=== PATIENT | female | born 1940 | race Caucasian/White ===

== ENCOUNTER 2017-01-17 12:12 | Day surgery (SDC) | payer MEDICARE, OTHER ==
[2017-01-17] MEDS ORDERED: LACTATED RINGERS 1,000 ML IV ONE ×2 (12:49→14:48)
[2017-01-17] MEDS ORDERED: MIDAZOLAM 2 MG/2 ML VIAL IVP ONE (14:13)
[2017-01-17] MEDS ORDERED: fentaNYL 250 MCG/5 ML VIAL IVP ONE (14:13)
== END 2017-01-17 12:13 | disposition home or self-care (01) ==
PROC: 0DBL8ZX Excision of Transverse Colon, Via Natural or Artificial Opening Endoscopic, Diagnostic (ICD-10-PCS; 2017-01-17)
PROC: 0DBF8ZX Excision of Right Large Intestine, Via Natural or Artificial Opening Endoscopic, Diagnostic (ICD-10-PCS; 2017-01-17)
PROC: 0DBE8ZX Excision of Large Intestine, Via Natural or Artificial Opening Endoscopic, Diagnostic (ICD-10-PCS; 2017-01-17)
PROC: 0DBG8ZX Excision of Left Large Intestine, Via Natural or Artificial Opening Endoscopic, Diagnostic (ICD-10-PCS; principal; 2017-01-17 13:30)
DX: Z12.11 Encounter for screening for malignant neoplasm of colon (principal); K63.5 Polyp of colon; K57.30 Diverticulosis of large intestine without perforation or abscess without bleeding; Z87.19 Personal history of other diseases of the digestive system; I10 Essential (primary) hypertension; E78.00 Pure hypercholesterolemia, unspecified
CPT/HCPCS: 45380; J3010; J7120

== ENCOUNTER 2017-11-08 14:11 | Outpatient (CLI) | payer MEDICARE, OTHER ==
--- NOTE | 2017-11-09 15:25 | Mammography Report ---
DIGITAL SCREENING MAMMOGRAM: 11/08/2017 CLINICAL INDICATION: A 77-year-old with family history of breast cancer, for screening. COMPARISON: 08/2016, 11/2014, 11/2013. TECHNIQUE: Routine CC and MLO projections were obtained of the breasts. FINDINGS: The breasts again demonstrate fatty replacement bilaterally. Coarse and punctate, typically benign calcifications are present. No suspicious masses, clustered microcalcifications, or regions of architectural distortion are identified. IMPRESSION: BENIGN FINDINGS. RECOMMENDATION: ROUTINE ANNUAL SCREENING UNLESS OTHERWISE CLINICALLY INDICATED. BIRADS CATEGORY 2-BENIGN FINDINGS. STANDARD QUALIFYING STATEMENTS: 1. This examination was reviewed with the aid of Computer-Aided Detection (CAD). 2. A negative or benign imaging report should not delay biopsy if clinically suspicious findings are present. Consider surgical consultation if warranted. More than 5% of cancers are not identified by imaging. 3. Dense breasts may obscure an underlying neoplasm. TD: 11/09/2017 15:24
== END 2017-11-08 14:12 | disposition home or self-care (01) ==
LOC: DI 14:11
PROVIDERS: ATTEND Family Medicine
DX: Z12.31 Encounter for screening mammogram for malignant neoplasm of breast (principal); Z80.3 Family history of malignant neoplasm of breast
CPT/HCPCS: 77067

== ENCOUNTER 2018-07-09 11:20 | Outpatient (CLI) | payer MEDICARE, OTHER ==
[2018-07-09 19:09] LABS: BASOPHILS # (AUTO) 0.1 10^3/uL (0.0-0.1); BASOPHILS % (AUTO) 0.7 %; EOSINOPHILS # (AUTO) 0.1 10^3/uL (0.0-0.7); EOSINOPHILS % (AUTO) 1.4 %; HGB - HEMOGLOBIN 12.7 g/dL (12.0-16.0); LYMPHOCYTES # (AUTO) 0.9 10^3/uL (1.5-3.5); LYMPHOCYTES % (AUTO) 11.8 %; MEAN CORPUSCULAR HEMOGLOBIN 32.5 pg (27.0-31.0); MEAN CORPUSCULAR HGB CONC 33.8 g/dL (32.0-36.0); MEAN CORPUSCULAR VOLUME 96.2 fL (81.0-99.0); MEAN PLATELET VOLUME 8.8 fL (7.9-10.8); MONOCYTES # (AUTO) 0.6 10^3/uL (0.0-1.0); MONOCYTES % (AUTO) 7.7 %; NEUTROPHILS # (AUTO) 6.2 10^3/uL (1.5-6.6); NEUTROPHILS % (AUTO) 78.4 %; PLT - PLATELET COUNT 303 10^3/uL (130-450); RED BLOOD COUNT 3.92 10^6/uL (4.20-5.40); RED CELL DISTRIBUTION WIDTH 13.9 % (12.0-15.0); WHITE BLOOD COUNT 7.9 x10^3/uL (4.8-10.8)
[2018-07-09 19:36] LABS: ALBUMIN 4.3 g/dL (3.2-5.5); ALBUMIN/GLOBULIN RATIO 1.3 (1.0-2.2); ALKALINE PHOSPHATASE 67 IU/L (42-121); ALT ALANINE AMINOTRANSFERASE 19 IU/L (10-60); AST ASPARTATE AMINOTRANSFERASE 27 IU/L (10-42); BILIRUBIN,TOTAL 0.7 mg/dL (0.2-1.0); BUN - BLOOD UREA NITROGEN 21 mg/dL (6-20); CALCIUM 9.3 mg/dL (8.5-10.3); CARBON DIOXIDE - CO2 27 mmol/L (21-32); CHLORIDE 104 mmol/L (101-111); CHOL/HDL RATIO 2.3 (<4.4); CHOLESTEROL 161 mg/dL; CREATININE 0.8 mg/dL (0.4-1.0); GFR - MDRD 69 (>89); GLUCOSE 96 mg/dL (70-100); HDL CHOLESTEROL 71 mg/dL; LDL CHOLESTEROL,CALCULATED 72 mg/dL; SODIUM 140 mmol/L (135-145); TOTAL PROTEIN 7.6 g/dL (6.7-8.2); VLDL CHOLESTEROL 18 mg/dL
[2018-07-09 20:33] LABS: HB2 TOTAL 13.3 g/dL; HEMOGLOBIN A1C 0.55 g/dL; HEMOGLOBIN A1C % 5.9 % (4.6-6.2)
== END 2018-07-09 11:21 ==
LOC: LAB.WCP 11:20
PROVIDERS: ATTEND Family Medicine
DX: I10 Essential (primary) hypertension (principal); E78.9 Disorder of lipoprotein metabolism, unspecified; K50.90 Crohn's disease, unspecified, without complications; R73.01 Impaired fasting glucose; R53.83 Other fatigue
CPT/HCPCS: 36415; 80053; 80061; 83036; 83721; 84443; 85025

== ENCOUNTER 2019-01-01 15:32 | Outpatient (CLI) | payer MEDICARE, OTHER ==
--- NOTE | 2019-01-01 16:36 | XRAY Report ---
Reason: RIGHT DISTAL ULNA TENDER Procedure Date: 01/01/2019 Accession Number: [id number] / [id number] Procedure: XRN - Wrist 4 View RT CPT Code: FULL RESULT: EXAM: RIGHT WRIST RADIOGRAPHY EXAM DATE: 01/01/2019 03:58 PM. CLINICAL HISTORY: Right distal ulna tender. COMPARISON: None. TECHNIQUE: 4 views (including dedicated scaphoid view). FINDINGS: Bones: Normal. No fractures or bone lesions. Joints: Mild degenerative appearing narrowing of the STT joint. Borderline widening of the scapholunate distance could indicate laxity to the interosseous ligament. Soft Tissues: Normal. No soft tissue swelling. IMPRESSION: No acute fracture or malalignment. RADIA
== END 2019-01-01 15:33 | disposition home or self-care (01) ==
LOC: DI.N 15:32
PROVIDERS: ATTEND Family Medicine
DX: M25.531 Pain in right wrist (principal)

== ENCOUNTER 2019-01-28 10:23 | Outpatient (CLI) | payer MEDICARE, OTHER ==
--- NOTE | 2019-01-28 17:11 | XRAY Report ---
Reason: KNEE PAIN,RIGHT Procedure Date: 01/28/2019 Accession Number: [id number] / [id number] Procedure: WCP - Knee 2 View RT CPT Code: FULL RESULT: EXAM: RIGHT KNEE RADIOGRAPHY EXAM DATE: 01/28/2019 10:35 AM. CLINICAL HISTORY: KNEE Pain, right. COMPARISON: WRIST 4 VIEW RT 01/01/2019 3:59 PM. TECHNIQUE: 2 views. FINDINGS: Bones: Normal. No fractures or bone lesions. Joints: Mild medial compartment joint space narrowing. Soft Tissues: Unremarkable. IMPRESSION: 1. Mild medial compartment degenerative joint space narrowing. RADIA
== END 2019-01-28 10:24 | disposition home or self-care (01) ==
LOC: DI.WCP 10:23
PROVIDERS: ATTEND Physician Assistant
DX: M17.11 Unilateral primary osteoarthritis, right knee (principal)

== ENCOUNTER 2019-02-13 15:37 | Outpatient (CLI) | payer MEDICARE, OTHER ==
[2019-02-13 19:08] LABS: BASOPHILS # (AUTO) 0.1 10^3/uL (0.0-0.1); BASOPHILS % (AUTO) 1.1 %; EOSINOPHILS # (AUTO) 0.2 10^3/uL (0.0-0.7); EOSINOPHILS % (AUTO) 2.6 %; HGB - HEMOGLOBIN 12.8 g/dL (12.0-16.0); LYMPHOCYTES # (AUTO) 1.4 10^3/uL (1.5-3.5); LYMPHOCYTES % (AUTO) 17.9 %; MEAN CORPUSCULAR HGB CONC 34.6 g/dL (32.0-36.0); MEAN CORPUSCULAR VOLUME 95.4 fL (81.0-99.0); MEAN PLATELET VOLUME 9.3 fL (7.9-10.8); MONOCYTES # (AUTO) 0.7 10^3/uL (0.0-1.0); MONOCYTES % (AUTO) 9.2 %; NEUTROPHILS # (AUTO) 5.5 10^3/uL (1.5-6.6); NEUTROPHILS % (AUTO) 69.2 %; PLT - PLATELET COUNT 256 10^3/uL (130-450); RED BLOOD COUNT 3.87 10^6/uL (4.20-5.40); RED CELL DISTRIBUTION WIDTH 13.9 % (12.0-15.0); WHITE BLOOD COUNT 7.9 x10^3/uL (4.8-10.8)
[2019-02-13 19:28] LABS: ALBUMIN 3.9 g/dL (3.2-5.5); ALBUMIN/GLOBULIN RATIO 1.3 (1.0-2.2); BILIRUBIN,TOTAL 0.4 mg/dL (0.2-1.0); CALCIUM 9.1 mg/dL (8.5-10.3); CREATININE 0.8 mg/dL (0.4-1.0); TOTAL PROTEIN 6.9 g/dL (6.7-8.2)
== END 2019-02-13 23:59 | disposition home or self-care (01) ==
LOC: LAB.WCP 15:37
PROVIDERS: ATTEND Family Medicine
DX: M25.511 Pain in right shoulder (principal); M25.512 Pain in left shoulder
CPT/HCPCS: 36415; 80053; 85025

== ENCOUNTER 2019-08-11 10:29 | Outpatient (CLI) | payer MEDICARE, OTHER ==
[2019-08-11 11:58] LABS: BASOPHILS % (AUTO) 0.6 %; EOSINOPHILS % (AUTO) 0.8 %; HGB - HEMOGLOBIN 13.2 g/dL (12.0-16.0); LYMPHOCYTES # (AUTO) 0.7 10^3/uL (1.5-3.5); LYMPHOCYTES % (AUTO) 20.3 %; MEAN CORPUSCULAR HEMOGLOBIN 31.4 pg (27.0-31.0); MEAN CORPUSCULAR HGB CONC 32.5 g/dL (32.0-36.0); MEAN CORPUSCULAR VOLUME 96.4 fL (81.0-99.0); MEAN PLATELET VOLUME 11.4 fL (7.9-10.8); MONOCYTES # (AUTO) 0.7 10^3/uL (0.0-1.0); MONOCYTES % (AUTO) 18.9 %; NEUTROPHILS # (AUTO) 2.1 10^3/uL (1.5-6.6); NEUTROPHILS % (AUTO) 59.1 %; PLT - PLATELET COUNT 171 10^3/uL (130-450); RED BLOOD COUNT 4.21 10^6/uL (4.20-5.40); RED CELL DISTRIBUTION WIDTH 13.4 % (12.0-15.0); WHITE BLOOD COUNT 3.5 x10^3/uL (4.8-10.8)
[2019-08-11 12:29] LABS: HB2 TOTAL 12.9 g/dL
[2019-08-11 12:39] LABS: ALBUMIN 4.3 g/dL (3.2-5.5); ALBUMIN/GLOBULIN RATIO 1.3 (1.0-2.2); ALKALINE PHOSPHATASE 59 IU/L (42-121); ALT ALANINE AMINOTRANSFERASE 23 IU/L (10-60); AST ASPARTATE AMINOTRANSFERASE 30 IU/L (10-42); BILIRUBIN,TOTAL 0.6 mg/dL (0.2-1.0); BUN - BLOOD UREA NITROGEN 20 mg/dL (6-20); CALCIUM 9.1 mg/dL (8.5-10.3); CARBON DIOXIDE - CO2 25 mmol/L (21-32); CHLORIDE 108 mmol/L (101-111); CHOL/HDL RATIO 2.5 (<4.4); CHOLESTEROL 147 mg/dL; CREATININE 0.9 mg/dL (0.4-1.0); GFR - MDRD 60 (>89); GLUCOSE 114 mg/dL (70-100); HDL CHOLESTEROL 58 mg/dL; LDL CHOLESTEROL,CALCULATED 68 mg/dL; LDL/HDL RATIO 1.2 (<4.4); SODIUM 140 mmol/L (135-145); TOTAL PROTEIN 7.7 g/dL (6.7-8.2); VLDL CHOLESTEROL 21 mg/dL
[2019-08-11 13:24] LABS: HEMOGLOBIN A1C 0.58 g/dL; HEMOGLOBIN A1C % 6.3 % (4.6-6.2)
== END 2019-08-11 23:59 | disposition home or self-care (01) ==
LOC: LAB.WCP 10:29
PROVIDERS: ATTEND Family Medicine
DX: L71.9 Rosacea, unspecified (principal); I10 Essential (primary) hypertension; M25.561 Pain in right knee; K50.90 Crohn's disease, unspecified, without complications; E78.5 Hyperlipidemia, unspecified
CPT/HCPCS: 36415; 80053; 80061; 83036; 83721; 84443; 85025

== ENCOUNTER 2019-08-19 10:14 | Outpatient (CLI) | payer MEDICARE, OTHER ==
--- NOTE | 2019-08-19 15:50 | XRAY Report ---
Reason: BRONCHITIS ACUTE Procedure Date: 08/19/2019 Accession Number: [id number] / [id number] Procedure: WCP - Chest 2 View X-Ray CPT Code: 70566 Final Report FULL RESULT: EXAM: CHEST RADIOGRAPHY EXAM DATE: 08/19/2019 10:14 AM. CLINICAL HISTORY: Bronchitis, acute. COMPARISON: None. TECHNIQUE: 2 views. FINDINGS: Lungs/Pleura: No focal opacities evident. No pleural effusion. No pneumothorax. Mild flattening of diaphragms and increased lung volumes, can be seen with obstructive lung disease. Mediastinum: Heart and mediastinal contours are unremarkable. Other: None. IMPRESSION: No acute cardiopulmonary abnormality is detected. Question obstructive lung disease. RADIA
== END 2019-08-19 23:59 | disposition home or self-care (01) ==
LOC: DI.WCP 10:14
PROVIDERS: ATTEND Family Medicine
DX: J20.9 Acute bronchitis, unspecified (principal)
CPT/HCPCS: 71046

== ENCOUNTER 2020-02-13 08:00 | Outpatient (CLI) | payer MEDICARE, OTHER ==
[2020-02-13 13:05] LABS: BASOPHILS # (AUTO) 0.1 10^3/uL (0.0-0.1); BASOPHILS % (AUTO) 0.7 %; EOSINOPHILS # (AUTO) 0.2 10^3/uL (0.0-0.7); EOSINOPHILS % (AUTO) 1.7 %; HGB - HEMOGLOBIN 12.2 g/dL (12.0-16.0); LYMPHOCYTES # (AUTO) 1.1 10^3/uL (1.5-3.5); LYMPHOCYTES % (AUTO) 12.8 %; MEAN CORPUSCULAR HEMOGLOBIN 29.8 pg (27.0-31.0); MEAN CORPUSCULAR HGB CONC 31.4 g/dL (32.0-36.0); MEAN CORPUSCULAR VOLUME 94.9 fL (81.0-99.0); MEAN PLATELET VOLUME 11.3 fL (7.9-10.8); MONOCYTES # (AUTO) 1.1 10^3/uL (0.0-1.0); MONOCYTES % (AUTO) 12.6 %; NEUTROPHILS # (AUTO) 6.4 10^3/uL (1.5-6.6); NEUTROPHILS % (AUTO) 71.4 %; PLT - PLATELET COUNT 283 10^3/uL (130-450); RED CELL DISTRIBUTION WIDTH 13.6 % (12.0-15.0); WHITE BLOOD COUNT 8.9 x10^3/uL (4.8-10.8)
[2020-02-13 13:29] LABS: BILIRUBIN,URINE NEGATIVE (NEGATIVE); GLUCOSE, URINE (UA) NEGATIVE (NEGATIVE); KETONES,URINE (UA) NEGATIVE (NEGATIVE); LEUKOCYTE ESTERASE, URINE LARGE (NEGATIVE); NITRITE,URINE NEGATIVE (NEGATIVE); OCCULT BLOOD,URINE MODERATE (NEGATIVE); PH,URINE 5.5 PH (5.0-7.5); PROTEIN,URINE 30 mg/dL (NEGATIVE); UROBILINOGEN,URINE 0.2 (NORMAL) E.U./dL (NORMAL)
[2020-02-13 13:30] LABS: CLARITY,URINE SL. CLOUDY (CLEAR)
[2020-02-13 13:36] LABS: RBC,URINE None Seen /HPF (0-5); SQUAMOUS EPITHELIAL CELL,UR NONE SEEN (<= Few)
[2020-02-13 13:37] LABS: BACTERIA,URINE Moderate /HPF (None Seen)
[2020-02-13 13:46] LABS: ALBUMIN 3.7 g/dL (3.2-5.5); BILIRUBIN,TOTAL 0.8 mg/dL (0.2-1.0); CALCIUM 9.2 mg/dL (8.5-10.3); CREATININE 1.1 mg/dL (0.4-1.0); TOTAL PROTEIN 7.5 g/dL (6.7-8.2)
== END 2020-02-13 23:59 | disposition home or self-care (01) ==
LOC: LAB.WCP 08:00
PROVIDERS: ATTEND Nurse Practitioner Family
DX: R35.0 Frequency of micturition (principal); J20.9 Acute bronchitis, unspecified; E78.5 Hyperlipidemia, unspecified; I10 Essential (primary) hypertension; K50.90 Crohn's disease, unspecified, without complications; R73.01 Impaired fasting glucose
CPT/HCPCS: 36415; 80053; 81001; 81003; 85025; 87077; 87086; 87181

== ENCOUNTER 2020-12-28 08:00 | Outpatient (CLI) | payer MEDICARE, OTHER ==
[2020-12-28 17:44] LABS: BASOPHILS # (AUTO) 0.1 10^3/uL (0.0-0.1); BASOPHILS % (AUTO) 1.4 %; EOSINOPHILS # (AUTO) 0.2 10^3/uL (0.0-0.7); EOSINOPHILS % (AUTO) 2.7 %; HCT - HEMATOCRIT 40.2 % (37.0-47.0); HGB - HEMOGLOBIN 12.9 g/dL (12.0-16.0); LYMPHOCYTES # (AUTO) 1.3 10^3/uL (1.5-3.5); LYMPHOCYTES % (AUTO) 20.1 %; MEAN CORPUSCULAR HEMOGLOBIN 31.6 pg (27.0-31.0); MEAN CORPUSCULAR HGB CONC 32.1 g/dL (32.0-36.0); MEAN CORPUSCULAR VOLUME 98.5 fL (81.0-99.0); MEAN PLATELET VOLUME 11.4 fL (7.9-10.8); MONOCYTES # (AUTO) 0.7 10^3/uL (0.0-1.0); MONOCYTES % (AUTO) 11.6 %; NEUTROPHILS % (AUTO) 63.6 %; PLT - PLATELET COUNT 231 10^3/uL (130-450); RED BLOOD COUNT 4.08 10^6/uL (4.20-5.40); RED CELL DISTRIBUTION WIDTH 13.3 % (12.0-15.0); WHITE BLOOD COUNT 6.2 x10^3/uL (4.8-10.8)
[2020-12-28 18:02] LABS: CREATININE,URINE 152.5 mg/dL; MICROALBUM/CREATININE RATIO,UR 11.8 ug/mg (<30.0); MICROALBUMIN,URINE 1.8 mg/dL (0-300.0)
[2020-12-28 18:19] LABS: THYROID STIMULATING HORMONE 2.39 uIU/mL (0.34-5.60)
[2020-12-28 18:23] LABS: ALBUMIN 4.2 g/dL (3.2-5.5); ALBUMIN/GLOBULIN RATIO 1.2 (1.0-2.2); ALKALINE PHOSPHATASE 61 IU/L (42-121); ALT ALANINE AMINOTRANSFERASE 18 IU/L (10-60); AST ASPARTATE AMINOTRANSFERASE 21 IU/L (10-42); BILIRUBIN,TOTAL 0.5 mg/dL (0.2-1.0); BUN - BLOOD UREA NITROGEN 26 mg/dL (6-20); CALCIUM 9.2 mg/dL (8.5-10.3); CARBON DIOXIDE - CO2 26 mmol/L (21-32); CHLORIDE 105 mmol/L (101-111); CHOL/HDL RATIO 2.6 (<4.4); CHOLESTEROL 161 mg/dL; GFR - MDRD 53 (>89); GLUCOSE 111 mg/dL (70-100); HDL CHOLESTEROL 63 mg/dL; LDL CHOLESTEROL,CALCULATED 83 mg/dL; LDL/HDL RATIO 1.3 (<4.4); POTASSIUM 4.3 mmol/L (3.5-5.0); SODIUM 140 mmol/L (135-145); TOTAL PROTEIN 7.7 g/dL (6.7-8.2); TRIGLYCERIDES 74 mg/dL; VLDL CHOLESTEROL 15 mg/dL
[2020-12-28 20:13] LABS: ESTIMATED AVERAGE GLUCOSE 126 mg/dL (70-100)
== END 2020-12-28 23:59 | disposition home or self-care (01) ==
LOC: LAB.WCP 08:00
PROVIDERS: ATTEND Internal Medicine
DX: R73.01 Impaired fasting glucose (principal); I10 Essential (primary) hypertension; E78.5 Hyperlipidemia, unspecified
CPT/HCPCS: 36415; 80053; 80061; 82043; 82570; 83036; 83721; 84443; 85025

== ENCOUNTER 2020-12-28 10:51 | Outpatient (CLI) | payer MEDICARE, OTHER ==
--- NOTE | 2020-12-28 12:01 | Mammography Report ---
BILATERAL DIGITAL SCREENING MAMMOGRAM 3D/2D: 12/28/2020 CLINICAL: Family history of breast cancer. Routine screening. Comparison is made to exams dated: 11/08/2017 mammogram, 08/01/2016 mammogram, 12/01/2014 mammogram, 11/25 mammogram, 11/20/2012 mammogram, and 11/20/2011 mammogram - [facility]. The ti ssue of both breasts is predominantly fatty. There are benign vascular calcifications in both breasts. No significant masses, calcifications, or other findings are seen in either breast. There has been no significant interval change. IMPRESSION: BENIGN There is no mammographic evidence of malignancy. A 1 year screening mammogram is recommended. This exam was interpreted at Station ID: [id number]. NOTE: For mammograms, a report in lay terms will be sent to the patient. Approximately 15% of breast malignancies will not be visualized mammographically. In the management of a palpable breast mass, a negative mammogram must not discourage biopsy of a clinically suspicious lesion. Electronically Signed By: Boni Nickerson acr/penrad:12/28/2020 11:50:20 ACR BI-RADS Category 2: Benign Finding(s) 3342F PARENCHYMAL PATTERN: (F) - The breast(s) demonstrate(s) diffuse fatty replacement. BI-RADS CATEGORY: (2) - 2 RECOMMENDATION: (ANNUAL) - Recommend routine annual screening mammography. [id number] 1 year screening LATERALITY: (B)
== END 2020-12-28 10:52 | disposition home or self-care (01) ==
LOC: DI.N 10:51
PROVIDERS: ATTEND Internal Medicine
DX: Z12.31 Encounter for screening mammogram for malignant neoplasm of breast (principal); Z80.3 Family history of malignant neoplasm of breast

== ENCOUNTER 2023-05-02 14:19 | Outpatient (CLI) | payer MEDICARE, OTHER ==
[2023-05-02 17:49] LABS: BASOPHILS # (AUTO) 0.1 10^3/uL (0.0-0.1); EOSINOPHILS # (AUTO) 0.1 10^3/uL (0.0-0.7); EOSINOPHILS % (AUTO) 1.7 %; HCT - HEMATOCRIT 33.1 % (37.0-47.0); HGB - HEMOGLOBIN 10.1 g/dL (12.0-16.0); LYMPHOCYTES # (AUTO) 1.7 10^3/uL (1.5-3.5); LYMPHOCYTES % (AUTO) 21.4 %; MEAN CORPUSCULAR HEMOGLOBIN 28.5 pg (27.0-31.0); MEAN CORPUSCULAR HGB CONC 30.5 g/dL (32.0-36.0); MEAN CORPUSCULAR VOLUME 93.5 fL (81.0-99.0); MEAN PLATELET VOLUME 10.4 fL (7.9-10.8); MONOCYTES # (AUTO) 0.7 10^3/uL (0.0-1.0); MONOCYTES % (AUTO) 8.9 %; NEUTROPHILS # (AUTO) 5.2 10^3/uL (1.5-6.6); NEUTROPHILS % (AUTO) 66.5 %; PLT - PLATELET COUNT 164 10^3/uL (130-450); RED BLOOD COUNT 3.54 10^6/uL (4.20-5.40); RED CELL DISTRIBUTION WIDTH 14.6 % (12.0-15.0); WHITE BLOOD COUNT 7.8 x10^3/uL (4.8-10.8)
[2023-05-02 18:27] LABS: THYROID STIMULATING HORMONE 2.44 uIU/mL (0.34-5.60)
[2023-05-02 18:34] LABS: FERRITIN 398.2 ng/mL (11.0-306.8)
== END 2023-05-02 14:20 | disposition home or self-care (01) ==
LOC: LAB.N 14:19
PROVIDERS: ATTEND Internal Medicine
DX: D64.9 Anemia, unspecified (principal); R41.3 Other amnesia
CPT/HCPCS: 36415; 82607; 82728; 83540; 84443; 84466; 85025

== ENCOUNTER 2023-05-18 16:09 | Outpatient (CLI) | payer MEDICARE, OTHER ==
--- NOTE | 2023-05-21 09:59 | MRI Report ---
PROCEDURE: BRAIN WO INDICATIONS: MEMORY IMPAIRMENT TECHNIQUE: Noncontrast axial T1 spin echo, axial T2 fast spin echo, sagittal and axial FLAIR, coronal T2 fast sp in echo, axial gradient echo, axial diffusion and ADC through the brain. COMPARISON: None. FINDINGS: Image quality: Excellent. The ventricular system and cortical sulci demonstrate atrophy, consistent for patient's stated age. There are areas of hyperintense T2/FLAIR signal in the periventricular and subcortical white matter. There are bilateral holohemispheric extradural fluid collections of mixed signal intensity. It measu re 2.3 cm on the left and 2.4 cm on the right. There is no midline shift. Brainstem is unremarkable. There are no areas of restricted diffusion. Globes are symmetrical. Sinuses are aerated. Moderate f luid is present in the right mastoid air cells. Recommend correlation to potential mastoiditis. [place] us structures are intact. IMPRESSION: Bilateral holohemispheric subdural fluid collections most consistent with acute on chronic subdural h ematomas. Given relative symmetric size, there is no midline shift. Atrophy and chronic microvascular ischemic changes are present. The above findings were discussed with Dr. Covington on 05/21/2023 at 9:30 AM. Reviewed by: Milli Vasquez MD on 05/21/2023 9:58 AM PDT Approved by: Milli Vasquez MD on 05/21/2023 9:58 AM PDT Station ID: [id number]
== END 2023-05-18 16:10 | disposition home or self-care (01) ==
LOC: DI 16:09
PROVIDERS: ATTEND Internal Medicine
DX: R41.3 Other amnesia (principal); R90.89 Other abnormal findings on diagnostic imaging of central nervous system

== ENCOUNTER 2023-06-12 08:45 | Outpatient (CLI) | payer MEDICARE, OTHER ==
--- NOTE | 2023-06-12 12:30 | CT Report ---
PROCEDURE: HEAD WO INDICATIONS: BILATERAL SUBDURAL HEMATOMAS TECHNIQUE: Noncontrast 4.5 mm thick angled axial sections acquired from the foramen magnum to the vertex. For r adiation dose reduction, the following was used: automated exposure control, adjustment of mA and/or kV according to patient size. COMPARISON: MRI brain 05/18/2023. FINDINGS: Image quality: Excellent. CSF spaces: Basal cisterns are patent. Increased size of left cerebral convexity subdural collection measuring up to 2.6 cm in maximal depth, previously 1.7 cm. Decreased size of right subdural collect ion measuring up to 1.2 cm, previously 1.7 cm. Mass effect on the left lateral ventricle. Left greate r than right sulcal effacement. Brain: Approximately 7 mm of rightward midline shift.. No intracranial masses or hemorrhage. Nichole-w travis matter interface is normal. Skull and face: Calvarium and visualized facial bones are intact, without suspicious lesions. Bilat eral lens replacements. Sinuses: Visualized sinuses and mastoids are clear. IMPRESSION: Bilateral chronic appearing subdural collections with membrane formation and predominantly hypoattenu ating contents. There has been interval decreased size of the right subdural collection and increased size of the left subdural collection with resultant 7 mm of rightward midline shift. Recommend corre lation with patient's symptoms. Reviewed by: Antonio Washington MD on 06/12/2023 12:29 PM PDT Approved by: Antonio Washington MD on 06/12/2023 12:29 PM PDT Station ID: [id number]
== END 2023-06-12 08:46 | disposition home or self-care (01) ==
LOC: DI 08:45
PROVIDERS: ATTEND Neurological Surgery
DX: S06.5XAD Traumatic subdural hemorrhage with loss of consciousness status unknown, subsequent encounter (principal)

== ENCOUNTER 2023-08-07 09:02 | Outpatient (CLI) | payer MEDICARE, OTHER ==
--- NOTE | 2023-08-07 15:20 | CT Report ---
PROCEDURE: HEAD WO INDICATIONS: SUBDURAL HEMATOMA TECHNIQUE: Noncontrast 4.5 mm thick angled axial sections acquired from the foramen magnum to the vertex. For r adiation dose reduction, the following was used: automated exposure control, adjustment of mA and/or kV according to patient size. COMPARISON: CT head 06/12/2023. FINDINGS: Image quality: Excellent. CSF spaces: Basal cisterns are patent. Decreased size of bilateral cerebral convexity subdural hemat omas. Posterior changes from left subdural hematoma evacuation. Left subdural hematoma measures up to 1.1 cm, previously 2.6 cm. The right subdural hematoma measures up to 1.0 cm, previously 1.2 cm. Ayan tricles are normal in size and shape. Brain: No midline shift. No intracranial masses or hemorrhage. Age-related global volume loss and c hronic microvascular ischemic changes. Nichole-white matter interface is normal. Skull and face: Status post left craniotomy Calvarium and visualized facial bones are intact, withou t suspicious lesions. Bilateral lens replacements. Sinuses: Visualized sinuses and mastoids are clear. IMPRESSION: 1.Decreased size of bilateral subdural hematoma status post left subdural hematoma evacuation. 2.No new acute intracranial abnormalities. Resolution of prior midline shift Reviewed by: Antonio Washington MD on 08/07/2023 3:18 PM PST Approved by: Antonio Washington MD on 08/07/2023 3:18 PM PST Station ID: [id number]
== END 2023-08-07 09:03 | disposition home or self-care (01) ==
LOC: DI 09:02
PROVIDERS: ATTEND Nurse Practitioner Adult Health
DX: S06.5XAA Traumatic subdural hemorrhage with loss of consciousness status unknown, initial encounter (principal)

== ENCOUNTER 2023-08-20 18:30 | Emergency (ER) | payer MEDICARE, OTHER ==
[2023-08-20 18:43] VITALS: O2SAT 98
[2023-08-20 19:28] LABS: BASOPHILS # (AUTO) 0.1 10^3/uL (0.0-0.1); BASOPHILS % (AUTO) 0.9 %; EOSINOPHILS # (AUTO) 0.2 10^3/uL (0.0-0.7); HCT - HEMATOCRIT 34.3 % (37.0-47.0); HGB - HEMOGLOBIN 10.6 g/dL (12.0-16.0); LYMPHOCYTES # (AUTO) 1.7 10^3/uL (1.5-3.5); LYMPHOCYTES % (AUTO) 26.8 %; MEAN CORPUSCULAR HEMOGLOBIN 28.7 pg (27.0-31.0); MEAN CORPUSCULAR HGB CONC 30.9 g/dL (32.0-36.0); MEAN PLATELET VOLUME 9.5 fL (7.9-10.8); MONOCYTES # (AUTO) 0.7 10^3/uL (0.0-1.0); NEUTROPHILS # (AUTO) 3.7 10^3/uL (1.5-6.6); NEUTROPHILS % (AUTO) 58.1 %; PLT - PLATELET COUNT 354 10^3/uL (130-450); RED BLOOD COUNT 3.69 10^6/uL (4.20-5.40); RED CELL DISTRIBUTION WIDTH 14.9 % (12.0-15.0); WHITE BLOOD COUNT 6.4 x10^3/uL (4.8-10.8)
[2023-08-20 19:42] LABS: ALBUMIN 3.8 g/dL (3.2-5.5); ALBUMIN/GLOBULIN RATIO 1.1 (1.0-2.2); BILIRUBIN,TOTAL 0.2 mg/dL (0.2-1.0); CALCIUM 9.3 mg/dL (8.5-10.3); POTASSIUM 3.8 mmol/L (3.5-4.5); TOTAL PROTEIN 7.2 g/dL (6.4-8.9)
--- NOTE | 2023-08-20 21:01 | CT Report ---
PROCEDURE: HEAD WO INDICATIONS: R hand numbness, subdural/craniotomy recently TECHNIQUE: Noncontrast 4.5 mm thick angled axial sections acquired from the foramen magnum to the vertex. For r adiation dose reduction, the following was used: automated exposure control, adjustment of mA and/or kV according to patient size. COMPARISON: CT head 08/07/2023 FINDINGS: Image quality: Excellent. The ventricular system and cortical sulci demonstrate atrophy, consistent for patient's stated age. There are areas of hypodensity in the periventricular and subcortical white matter. As identified on prior exam, bilateral subacute subdural hematomas are present. There are areas of increased linear hy perdensity within the left subdural hematoma signifying foci of more subacute hemorrhage although sta ble compared to 08/07/2023. Other portions of the subdural hematomas are similar versus minimally decr eased in size compared to prior exam. Brainstem is unremarkable. Globes are symmetrical. Sinuses are aerated. Craniotomy changes are present. IMPRESSION: Subacute bilateral subdural hematomas as described above. No new areas of acute hemorrhage compared t o 08/07/2023. Reviewed by: Milli Vasquez MD on 08/20/2023 8:59 PM PST Approved by: Milli Vasquez MD on 08/20/2023 8:59 PM PST Station ID: [id number]
--- NOTE | 2023-08-20 23:19 | CT Report ---
PROCEDURE: CT Angio Head/Neck INDICATIONS: R hand numb/weak, worsening since subdural TECHNIQUE: After the administration of intravenous contrast, 1 mm thick sections acquired from the aortic arch t hrough the [place] of [place]. 3-dimensional mlduepr-uexzkupgt-orfychbedk (MIP) and/or volume renderin g reformats were acquired of the central intracranial vasculature and neck separately. For radiation dose reduction, the following was used: automated exposure control, adjustment of mA and/or kV acco rding to patient size. COMPARISON: CT head 08/20/2023, 08/07/2023 FINDINGS: Image quality: Diagnostic. HEAD CT: Please see separately dictated CT brain report of 08/20/2023, noting bilateral subdural hematomas. HEAD CT ANGIOGRAPHY: Anterior circulation: Intracranial internal carotid arteries are normal in size and flow. The flow within the paired anterior cerebral arteries is normal and symmetric. There is hypoplasia of the A1 segment of the left anterior cerebral artery. The flow within the middle cerebral arteries is normal and symmetric. The anterior communicating artery is seen. No aneurysms are seen. Posterior circulation: Right vertebral artery dominance. Visualized portions of the vertebral arteri es demonstrate normal caliber, and join to form a normal appearing basilar artery. Flow within the p osterior cerebral arteries is normal and symmetric. No aneurysms are seen. NECK CT ANGIOGRAPHY: Carotid system: The great vessels demonstrate a conventional anatomy as they arise from the aortic a rch. The origins of the common carotid arteries appear patent. The common carotid arteries demonstr ate normal caliber and courses. The bifurcation regions are both widely patent. The internal caroti d arteries demonstrate normal calibers and courses. Posterior circulation: The origins of the vertebral arteries both appear widely patent. The more jimenez perior extracranial portions of both vertebral arteries also demonstrate normal courses and calibers. They join to form a normal appearing basilar artery. Soft tissues: Visualized neck soft tissues demonstrate no suspicious abnormalities. Bones: No suspicious bony lesions. Visualized cervical spine appears normally aligned. IMPRESSION: Please see separately dictated CT head report of 08/20/2023 noting bilateral subdural hematomas. No areas of hemodynamically significant stenosis, vascular occlusion or aneurysmal dilation within th e anterior circulation. No areas of hemodynamically significant stenosis, vascular occlusion or aneurysmal dilation within th e posterior circulation. There are no areas of hemodynamically significant stenosis, vascular occlusion or aneurysmal dilation within the neck vasculature. The estimate of stenosis included in the report of the imaging study was calculated using the NASCET method Reviewed by: Milli Vasquez MD on 08/20/2023 11:18 PM PST Approved by: Milli Vasquez MD on 08/20/2023 11:18 PM PST Station ID: [id number]
[2023-08-20] MEDS ORDERED: iohexoL-300 100 ML VIAL IVP ONE (23:44)
--- NOTE | 2023-08-20 23:45 | ED Physician Documentation ---
History of Present Illness - Stated complaint Stated Complaint: DIZZINESS - Chief complaint Chief Complaint: Neuro - History obtained from History obtained from: Patient, Family - Additonal information Additional information: The pt comes to the ED for CC of R hand numbness/weakness that has been waxing and waning, but generally progressive since a bilateral subdural the pt was discovered to have back in late May. The pt states she went to rehab and first noticed the numb sensation in her R hand/arm shortly after arriving there. The pt states she worked with OT and PT at rehab, and they were aware. She also mentioned the problem to her doctors, but they didn't seem concerned. She is here tonight, because over the past couple of days, she has dropped things 3 times when trying to hold on to them. She states she just can't sense well enough to get a good, hard technology auditor. The pt's daughter was concerned because the pt had never been unable to keep hold of things before. The pt states that the numbness seems better now. No other or new neurologic sx. She has an appointment coming up with her neurosurgeon in a month or so. PD PAST MEDICAL HISTORY - Past Medical History Past Medical History: Yes Cardiovascular: Hypertension Respiratory: None Endocrine/Autoimmune: None GI: Hemorrhoids, Crohn's disease : None HEENT: None Psych: None Musculoskeletal: None Derm: None - Past Surgical History Past Surgical History: Yes General: Bowel surgery, Colonoscopy /[employer]ELOPER: Hysterectomy, Oophrectomy - Present Medications Home Medications: Ambulatory Orders Medication Instructions Recorded Confirmed Losartan Potassium 100 mg PO DAILY 01/05/15 01/16/17 Multivitamin [Multi-Vitamin Daily] 1 tab PO DAILY 01/05/15 01/16/17 Simvastatin 10 mg PO DAILY 01/05/15 01/16/17 azaTHIOprine [Imuran] 50 mg PO DAILY 01/05/15 01/16/17 Metoprolol Succinate [Toprol Xl] 25 mg PO DAILY 01/16/17 01/16/17 - Allergies Allergies/Adverse Reactions: Allergies Allergy/AdvReac Type Severity Reaction Status Date / Time No Known Drug Allergies Allergy Verified 08/20/23 18:37 - Social History Does the pt smoke?: No Smoking Status: Never smoker Does the pt drink ETOH?: No Does the pt have substance abuse?: No - Immunizations Immunizations are current?: Yes PD ED PE NORMAL - Vitals Vital signs reviewed: Yes - General General: Alert and oriented X 3, No acute distress, Well developed/nourished - HEENT HEENT: Atraumatic, PERRL, EOMI, Moist mucous membranes - Neck Neck: Supple, no meningeal sign - Cardiac Cardiac: RRR, No murmur - Respiratory Respiratory: No respiratory distress, Clear bilaterally - Abdomen Abdomen: Soft, Non tender, Non distended - Derm Derm: Normal color, Warm and dry, No rash - Extremities Extremities: No deformity, No edema - Neuro Neuro: Alert and oriented X 3, director of photography 2-12 intact, No motor deficit (5+ and equal strength in bilateral upper extremities. ), Normal speech, Other (Slightly decreased sensation of R hand compared to L, but overall intact.) - Psych Psych: Normal mood, Normal affect Results - Vitals Vitals: Oxygen O2 Source Room air - Labs Labs: Laboratory Tests 08/20/23 08/20/23 19:25 19:25 WBC 6.4 RBC 3.69 L Hgb 10.6 L Hct 34.3 L MCV 93.0 MCH 28.7 MCHC 30.9 L RDW 14.9 Plt Count 354 MPV 9.5 Neut # (Auto) 3.7 Lymph # (Auto) 1.7 Glades # (Auto) 0.7 Eos # (Auto) 0.2 Baso # (Auto) 0.1 Absolute Nucleated RBC 0.00 Nucleated RBC % 0.0 Sodium 141 Potassium 3.8 Chloride 106 Carbon Dioxide 28 Anion Gap 7.0 BUN 20 Creatinine 1.0 Estimated GFR (MDRD) 53 L Glucose 105 H Calcium 9.3 Total Bilirubin 0.2 AST 10 ALT 7 L Alkaline Phosphatase 95 Total Protein 7.2 Albumin 3.8 Globulin 3.4 Albumin/Globulin Ratio 1.1 Lipase 13 - Rads (name of study) CT Head Relevant Findings:: Final report received, See rad report CTA head/neck Relevant Findings:: Final report received, See rad report (neg for arterial stenosis or acute findings.) PD Medical Decision Making - ED course Complexity details: reviewed results, re-evaluated patient, considered differential, d/w patient, d/w family ED course: The pt was asymptomatic in the ED, and her symptoms had been fluctuating and gradually intensifying for the past few months since her subdurals and craniotomy. Nonetheless, since the pt's sx had been worsening and she had had a worse episode than before today, I felt she should be worked up. We did not have MRI available on this weekend night, but the pt was sent for CT/CTA of the head/neck. CTs were unremarkable for new findings. I have d/w pt and daughter that I do not think, given the gradual progression and fluctuating course of the pt's sx, that the pt's sx over the past few days represent an acute event. I have advised her to call her neurosurgeon tomorrow to see if she needs a sooner appointment. We have also discussed that she needs to talk to her PCP about neurology referral. We have discussed the usual indications for return. Departure - Departure Disposition: 01 Home, Self Care Clinical Impression: Paresthesias with subjective weakness Condition: Stable Instructions: ED Paraesthesias Comments: Both your CT of the head without contrast and your CT angiograms look good. The head CT does not show any new bleeding or expansion of the old areas of blood. The angiograms do not show any blockages in your blood vessels. Your examination today actually is quite good and there is no evidence of any weakness in your technology auditor whatsoever. You do have a very slight amount of decreased sensation on exam, although this is also minimal. At this point in time, no emergent condition has been identified. It seems you have had the numbness in a waxing and waning fashion for a few months now though since this is overall seeming to be worse when present than it was before, it is still important for you to talk with both your neurosurgeon and your neurologist about this. You may call both the neurology and neurosurgery offices and let them know what is going on and see if they are willing or able to see you sooner. Otherwise, you may continue your home medications as usual and any ongoing physical therapy that you are still doing. If you develop new or severe symptoms of concern, please return to the emergency department for reevaluation. Forms: PCP List Discharge Date/Time: 08/21/23 00:00
[2023-08-21 00:28] VITALS: BP 128/84
== END 2023-08-21 | disposition home or self-care (01) ==
LOC: ED 18:30
DX: R20.2 Paresthesia of skin (principal); R53.1 Weakness; I10 Essential (primary) hypertension; Z79.899 Other long term (current) drug therapy
CPT/HCPCS: 36415; 70450; 70496; 70498; 80053; 83690; 85025; 99283; 99284; Q9967

== ENCOUNTER 2023-09-27 09:36 | Outpatient (CLI) | payer MEDICARE, OTHER ==
--- NOTE | 2023-09-27 11:15 | CT Report ---
PROCEDURE: HEAD WO INDICATIONS: SEIZURE, SUBDURAL HEMATOMA TECHNIQUE: Noncontrast 4.5 mm thick angled axial sections acquired from the foramen magnum to the vertex. For r adiation dose reduction, the following was used: automated exposure control, adjustment of mA and/or kV according to patient size. COMPARISON: 08/20/2023, 10/07/2022, 07/12/2023 FINDINGS: Image quality: Excellent. CSF spaces: Basal cisterns are patent. Ventricles are normal in size and shape. Brain: On the right side, there is primarily low density subdural hematoma seen, with maximum thickn ess of 8 mm. There is a minimal degree of hematoma seen posteriorly on the left, with a maximum thick ness of 4 to 5 mm. There is a small amount of intracranial gas seen in the left, as on series 2 image 40, for example. These subdural hematomas are slightly improved compared to the 08/20/2023 examinati on. Stable hyperdense regions can be seen along the dura on the left, which are stable compared to th e prior examination and most likely related to calcification. No miri interval hemorrhage can be see n. No midline shift. No intracranial masses. Nichole-white matter interface is normal. Skull and face: Left-sided craniotomy change is seen. Calvarium and visualized facial bones are inta ct, without suspicious lesions. Sinuses: Visualized sinuses and mastoids are clear. IMPRESSION: Bilateral subdural hematomas are seen, which are overall slightly improved compared to the 08/20/2023 examination. No miri acute components are seen. Reviewed by: Panda Centeno MD on 09/27/2023 10:14 AM [facility] Approved by: Panda Centeno MD on 09/27/2023 10:14 AM [facility] Station ID: [id number]
== END 2023-09-27 09:37 | disposition home or self-care (01) ==
LOC: DI 09:36
PROVIDERS: ATTEND Nurse Practitioner Family
DX: S06.5XAD Traumatic subdural hemorrhage with loss of consciousness status unknown, subsequent encounter (principal); R56.9 Unspecified convulsions

== ENCOUNTER 2023-10-30 09:46 | Outpatient (CLI) | payer MEDICARE, OTHER ==
[2023-10-30 13:01] LABS: BASOPHILS # (AUTO) 0.1 10^3/uL (0.0-0.1); BASOPHILS % (AUTO) 0.8 %; EOSINOPHILS # (AUTO) 0.2 10^3/uL (0.0-0.7); EOSINOPHILS % (AUTO) 2.8 %; HCT - HEMATOCRIT 37.4 % (37.0-47.0); HGB - HEMOGLOBIN 11.4 g/dL (12.0-16.0); LYMPHOCYTES # (AUTO) 1.1 10^3/uL (1.5-3.5); LYMPHOCYTES % (AUTO) 18.2 %; MEAN CORPUSCULAR HEMOGLOBIN 29.2 pg (27.0-31.0); MEAN CORPUSCULAR HGB CONC 30.5 g/dL (32.0-36.0); MEAN CORPUSCULAR VOLUME 95.7 fL (81.0-99.0); MEAN PLATELET VOLUME 11.1 fL (7.9-10.8); MONOCYTES # (AUTO) 0.6 10^3/uL (0.0-1.0); MONOCYTES % (AUTO) 10.4 %; NEUTROPHILS # (AUTO) 4.2 10^3/uL (1.5-6.6); NEUTROPHILS % (AUTO) 67.5 %; RED BLOOD COUNT 3.91 10^6/uL (4.20-5.40); RED CELL DISTRIBUTION WIDTH 14.3 % (12.0-15.0); WHITE BLOOD COUNT 6.2 x10^3/uL (4.8-10.8)
[2023-10-30 13:03] LABS: PLATELET ESTIMATE, MANUAL NORMAL (130-450,000) (NORMAL); PLATELET MORPHOLOGY PLATELET CLUMPING (NORMAL); RBC MORPHOLOGY (MULTIPLE) NORMAL APPEARANCE (NORMAL); SLIDE REVIEW? Indicated
[2023-10-30 13:16] LABS: ALBUMIN 3.8 g/dL (3.2-5.5); ALBUMIN/GLOBULIN RATIO 1.1 (1.0-2.2); ALKALINE PHOSPHATASE 94 IU/L (42-121); ALT ALANINE AMINOTRANSFERASE 13 IU/L (10-60); AST ASPARTATE AMINOTRANSFERASE 14 IU/L (10-42); BILIRUBIN,TOTAL 0.6 mg/dL (0.2-1.0); BUN - BLOOD UREA NITROGEN 20 mg/dL (6-20); CALCIUM 9.6 mg/dL (8.5-10.3); CARBON DIOXIDE - CO2 28 mmol/L (21-32); CHLORIDE 108 mmol/L (101-111); CHOLESTEROL 133 mg/dL; GFR - MDRD 53 (>89); GLUCOSE 104 mg/dL (74-104); HDL CHOLESTEROL 45 mg/dL; LDL CHOLESTEROL,CALCULATED 68 mg/dL; LDL/HDL RATIO 1.5 (<4.4); POTASSIUM 4.3 mmol/L (3.5-4.5); SODIUM 141 mmol/L (135-145); TOTAL PROTEIN 7.3 g/dL (6.4-8.9); TRIGLYCERIDES 98 mg/dL (48-352); VLDL CHOLESTEROL 20 mg/dL
[2023-10-30 13:25] LABS: CREATININE,URINE 120.5 mg/dL; MICROALBUM/CREATININE RATIO,UR 19.9 ug/mg (<30.0); MICROALBUMIN,URINE 2.4 mg/dL
[2023-10-30 21:05] LABS: ESTIMATED AVERAGE GLUCOSE 126 mg/dL (70-100)
== END 2023-10-30 09:47 | disposition home or self-care (01) ==
LOC: LAB.N 09:46
PROVIDERS: ATTEND Internal Medicine
DX: I51.81 Takotsubo syndrome (principal); E78.5 Hyperlipidemia, unspecified; R73.03 Prediabetes; R41.0 Disorientation, unspecified
CPT/HCPCS: 36415; 80053; 80061; 82043; 82570; 83036; 83721; 85025; 87086

== ENCOUNTER 2024-04-24 08:00 | Outpatient (CLI) | payer MEDICARE, OTHER | END 2024-04-24 23:59 | disposition home or self-care (01) | LOC: LAB.N 08:00 | PROVIDERS: ATTEND Physician Assistant Medical | DX: B00.1 Herpesviral vesicular dermatitis (principal) | CPT/HCPCS: 87255 ==